=== PATIENT | female | born 1950 | race Caucasian/White ===

== ENCOUNTER → 2018-12-10 | Outpatient (CLI) | payer MEDICARE, OTHER, MEDICAID ==
--- NOTE | 2018-12-10 16:31 | REP ---
Bilateral lower extremity arterial Doppler ultrasound: History: Peripheral vascular disease. Findings: Bilateral atherosclerotic plaquing is observed. There is no apparent stenosis or occlusion. Biphasic waveforms are noted throughout both lower extremity arteries. Ankle brachial indices are normal at 0.95 on the right and 0.93 on the left. Velocity chart right lower extremity arteries: Right CF A 127 cm/S Profunda 57 Proximal SFA 146 Mid SFA 104 Distal SFA 83 Popliteal 57 Proximal AT A 30 Tibioperoneal trunk 68 Proximal CHIP AP[employer]YING MACHINE TENDER 38 Distal CHIP APPLYING MACHINE TENDER 39 Distal AT A 74 Velocity chart left lower extremity arteries: Left CF A 116 cm/S Profunda 32 Proximal SFA 125 Mid SFA 67 Distal SFA 48 Popliteal 47 Proximal AT A 41 Tibioperoneal trunk 45 Proximal CHIP AP[employer]YING MACHINE TENDER 34 Distal CHIP APPLYING MACHINE TENDER 29 Distal AT A 36 Electronically Signed by Kofi Hernandez MD 12/10/2018 04:23 P
== END ==
LOC: M RAD 11:53
PROVIDERS: ATTEND Internal Medicine
DX: I70.203 Unspecified atherosclerosis of native arteries of extremities, bilateral legs (principal); I73.9 Peripheral vascular disease, unspecified

== ENCOUNTER → 2019-08-10 | Outpatient (CLI) | payer MEDICARE, OTHER, MEDICAID | LOC: M LABSMTC 09:59 | PROVIDERS: ATTEND Physical Medicine & Rehabilitation | DX: Z03.818 Encounter for observation for suspected exposure to other biological agents ruled out (principal) ==

== ENCOUNTER → 2019-12-08 | Outpatient (CLI) | payer MEDICARE, OTHER, MEDICAID | LOC: M LABSMTC 11:32 | PROVIDERS: ATTEND Physical Medicine & Rehabilitation | DX: Z01.812 Encounter for preprocedural laboratory examination (principal); Z20.828 Contact with and (suspected) exposure to other viral communicable diseases ==